=== PATIENT | male | born 1980 | race Caucasian/White ===

== ENCOUNTER 2017-03-10 10:40 | Emergency (ER) | payer SELFPAY ==
[~2017-03-10] VITALS: Ht 177.8 cm; Wt 75.0 kg
[2017-03-10] MEDS ORDERED: SODIUM CHLORIDE 0.9% 1,000 ML IV ONE (11:23)
[2017-03-10 11:46] LABS: HEMATOCRIT. 39.5 % (42.0-52.0); HEMOGLOBIN. 13.6 g/dL (14.0-18.0); MEAN CORPUSCULAR HEMOGLOBIN 30.7 pg (28.0-32.0); MEAN CORPUSCULAR VOLUME 88.9 fL (80.0-94.0); MEAN PLATELET VOLUME 7.2 fl (7.4-10.4); PLATELET 535 x1000/uL (130-400); RED BLOOD CELL COUNT 4.45 mill/uL (4.7-6.1); RED CELL DISTRIBUTION WIDTH 17.7 % (11.6-14.6)
[2017-03-10 12:04] LABS: CARBON DIOXIDE 32 mEq/L (21-32); CHLORIDE 102 mEq/L (98-107)
[2017-03-10 12:08] LABS: ETHANOL BLOOD 424 mg/dL
[2017-03-10 12:37] LABS: PLATELET ESTIMATE INCREASED
[2017-03-10 13:16] LABS: CLARITY URINE CLEAR (CLEAR); COLOR URINE YELLOW (YELLOW); GLUCOSE URINE NEGATIVE (NEGATIVE); KETONES URINE NEGATIVE (NEGATIVE); LEUKOCYTE ESTERASE URINE NEGATIVE (NEGATIVE); NITRITE URINE NEGATIVE (NEGATIVE); OCCULT BLOOD URINE NEGATIVE (NEGATIVE); PH URINE 5.5 (4.5-8.0); PROTEIN URINE NEGATIVE (NEGATIVE); SPECIFIC GRAVITY URINE 1.011 (1.005-1.030); UROBILINOGEN URINE 0.2 E.U./dL (0.2-1.0)
[2017-03-10 13:33] LABS: *AMPHETAMINES SCREEN URINE NEGATIVE (NEGATIVE); *BARBITURATES SCREEN URINE NEGATIVE (NEGATIVE); *BENZODIAZEPINES SCREEN URINE NEGATIVE (NEGATIVE); *COCAINE SCREEN URINE NEGATIVE (NEGATIVE); CANNABINOID URINE SCREEN NEGATIVE (NEGATIVE); METHADONE URINE SCREEN NEGATIVE (NEGATIVE); OPIATES URINE SCREEN NEGATIVE (NEGATIVE); PHENCYCLIDINE URINE SCREEN NEGATIVE (NEGATIVE)
[2017-03-10] MEDS ORDERED: ONDANSETRON HCL 4MG/2ML VIAL IV ONE (17:45)
[2017-03-10] MEDS ORDERED: LORAZEPAM 2MG/ML CPJ IV ONE (18:45)
[2017-03-10] MEDS ORDERED: CHLORDIAZEPOXIDE 25MG CAPSULE PO ONE (21:15)
[2017-03-10 21:30] VITALS: BP 116/85
== END 2017-03-10 21:53 | disposition home or self-care (01) ==
LOC: EDBD 10:40 → ER 10:56
DX: F10.129 Alcohol abuse with intoxication, unspecified (principal); E11.9 Type 2 diabetes mellitus without complications; Y09 Assault by unspecified means
CPT/HCPCS: 36415; 70450; 80053; 80305; 81003; 82962; 85025; 96361; 96374; 96375; 99285; G0482; J2060; J2405; J7030; Z7610

== ENCOUNTER 2017-03-11 06:32 | Emergency (ER) | payer BC ==
[~2017-03-11] VITALS: Ht 167.6 cm; Wt 69.0 kg
[2017-03-11] MEDS ORDERED: SODIUM CHLORIDE 0.9% 1,000 ML IV ONE ×2 (07:56→16:15)
[2017-03-11 08:49] LABS: BASOPHILS % 2.7 % (0.0-2.0); EOSINOPHILS % 0.9 % (0.0-5.0); HEMATOCRIT. 38.1 % (42.0-52.0); HEMOGLOBIN. 12.8 g/dL (14.0-18.0); LYMPHOCYTES % 29.8 % (20.0-50.0); MEAN CORPUSCULAR VOLUME 89.2 fL (80.0-94.0); MEAN PLATELET VOLUME 8.1 fl (7.4-10.4); NEUTROPHILS % 57.6 % (40.0-76.0); PLATELET 454 x1000/uL (130-400); RED BLOOD CELL COUNT 4.27 mill/uL (4.7-6.1); RED CELL DISTRIBUTION WIDTH 17.5 % (11.6-14.6)
[2017-03-11 08:52] LABS: CARBON DIOXIDE 31 mEq/L (21-32); CHLORIDE 93 mEq/L (98-107)
[2017-03-11] MEDS ORDERED: INSULIN REGULAR (HUMULIN R) 300UNITS/3ML IV ONE (09:00)
[2017-03-11] MEDS ORDERED: CHLORDIAZEPOXIDE 25MG CAPSULE PO ONE (09:30)
[2017-03-11] MEDS ORDERED: ACETAMINOPHEN 500MG TABLET PO ONE (12:00)
[2017-03-11] MEDS ORDERED: INSULIN REGULAR (HUMULIN R) 300UNITS/3ML SUBCUT NR (16:15)
[2017-03-11] MEDS ORDERED: SODIUM CHLORIDE 0.9% 1,000 ML IV NR (16:15)
[2017-03-11] MEDS ORDERED: LORAZEPAM 2MG/ML CPJ IV ONE (19:45)
[2017-03-11 20:42] VITALS: BP 141/90
== END 2017-03-11 20:46 | disposition home or self-care (01) ==
LOC: ER 07:25
DX: F10.129 Alcohol abuse with intoxication, unspecified (principal); E11.9 Type 2 diabetes mellitus without complications; I10 Essential (primary) hypertension; Z59.0 Homelessness; Z79.4 Long term (current) use of insulin
CPT/HCPCS: 36415; 80048; 82962; 85025; 93005; 96361; 96372; 96374; 96375; 99285; J1815; J2060; J7030; Z7610